=== PATIENT | male | born 1985 | race Caucasian/White ===

== ENCOUNTER 2021-08-09 17:23 | Emergency (ER) | payer SELFPAY ==
[~2021-08-09] VITALS: Ht 172 cm; Wt 74.0 kg
[2021-08-09 18:14] VITALS: BP 162/83
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
[2021-08-09] MEDS ORDERED: CEPH500T PO (18:27)
[2021-08-09] MEDS ORDERED: LIDOCAINE 1% INJ 20 ML VIAL INJ ONE (18:30)
[2021-08-09] MEDS ORDERED: TETANUS,DIPTH,PERTUSS P/F (BOOSTRIX) 0.5 ML VIAL IM ONE (18:30)
== END 2021-08-09 18:28 | disposition home or self-care (01) ==
LOC: EDUNIT# 17:23 → ER FS 17:26
DX: S09.90XA Unspecified injury of head, initial encounter (principal); S01.81XA Laceration without foreign body of other part of head, initial encounter; F17.210 Nicotine dependence, cigarettes, uncomplicated; Z23 Encounter for immunization; W22.8XXA Striking against or struck by other objects, initial encounter
CPT/HCPCS: 12053; 90471; 90715